=== PATIENT | female | born 1960 ===

== ENCOUNTER 2021-09-13 11:32 | Emergency (ER) | payer OTHER ==
[~2021-09-13] VITALS: Ht 152.4 cm; Wt 73.5 kg
[~2021-09-13 11:32] MED LIST: LISINOPRIL20 MG; NORVASC10 MG
[2021-09-13] MEDS ORDERED: PROZAC10 MG PO (11:42)
[2021-09-13] MEDS ORDERED: DRIZALMA SPRINK20 MG PO (11:42)
[2021-09-13] MEDS ORDERED: CLONAZEPAM1 MG PO (11:43)
== END 2021-09-13 17:31 | disposition home or self-care (01) ==
LOC: ER 11:32
DX: K57.90 Diverticulosis of intestine, part unspecified, without perforation or abscess without bleeding (principal); I10 Essential (primary) hypertension; Z88.6 Allergy status to analgesic agent; Z91.013 Allergy to seafood